=== PATIENT | male | born 1965 | race African-American/Black ===

== ENCOUNTER 2020-12-20 13:48 | Outpatient (CLI) | payer BC | END 2020-12-20 13:49 | disposition home or self-care (01) | LOC: BICMRI 13:48 | PROVIDERS: ATTEND Family Medicine | DX: M54.16 Radiculopathy, lumbar region (principal); M48.07 Spinal stenosis, lumbosacral region | CPT/HCPCS: 72148 ==

== ENCOUNTER 2021-01-23 10:12 | Outpatient (CLI) | payer BC | END 2021-01-23 10:13 | disposition home or self-care (01) | LOC: TBSIIMAG 10:12 | PROVIDERS: ATTEND Neurological Surgery | DX: M43.16 Spondylolisthesis, lumbar region (principal); M43.17 Spondylolisthesis, lumbosacral region | CPT/HCPCS: 72100 ==